=== PATIENT | female | born 1995 ===

== ENCOUNTER 2021-02-10 09:39 | Emergency (ER) | payer OTHER ==
[~2021-02-10] VITALS: Ht 165.1 cm; Wt 141.5 kg
[~2021-02-10 09:39] MED LIST: KETO10TA2 PO
== END 2021-02-10 17:36 | disposition home or self-care (01) ==
LOC: ER 09:39
DX: M62.830 Muscle spasm of back (principal); R10.9 Unspecified abdominal pain

== ENCOUNTER → 2021-05-30 08:00 | Outpatient (CLI) | payer OTHER | END | disposition home or self-care (01) | LOC: PPH VACUNA 08:00 | PROVIDERS: ATTEND Emergency Medicine Pediatric Emergency Medicine | DX: Z23 Encounter for immunization (principal) ==